=== PATIENT | male | born 1975 | race Two or more races ===

== ENCOUNTER 2016-08-18 08:55 | Emergency (ER) | payer SELFPAY ==
[2016-08-18] MEDS ORDERED: IOPAMIDOL 300 (61%) 100 ML VIAL IV ONE (08:56)
[2016-08-18] MEDS ORDERED: SODIUM CHLORIDE 0.9% 1,000 ML ONE (09:21)
[2016-08-18 09:38] LABS: BASO % 0.1 % (0.2-1.0); EOS # 0.1 (0.0-0.5); EOS % 1.3 % (0.9-2.9); HEMATOCRIT 42.4 % (32.0-52.0); HEMOGLOBIN 14.3 gm/l (14.0-18.0); IMM NEUT% 0.2 % (0-1); LYMPH # 1.6 (1.0-4.8); LYMPH % 19.6 % (15-45); MEAN CELL VOLUME 86.2 fl (80.0-94.0); MEAN CORPUSCULAR HEMOGLOBIN 29.1 pg (27.0-31.0); MEAN CORPUSCULAR HGB CONC 33.7 g/dl (33.0-37.0); MEAN PLATELET VOLUME 10.8 fl (7.4-10.4); MONO # 0.5 (0.0-0.8); NEUT % 72.8 % (43-75); PLATELET COUNT 182 K/mm3 (130-400); RED CELL DISTRIBUTION WIDTH 12.1 % (11.5-14.5)
[2016-08-18 10:34] LABS: ALB/GLOB RATIO 1.4 (>1.0); ALBUMIN 4.6 gm/dL (3.5-5.7); CALCIUM 9.2 mg/dL (8.6-10.3); MAGNESIUM 2.3 mg/dL (1.9-2.7)
[2016-08-18 10:40] LABS: C-REACTIVE PROTEIN 6.2 mg/dl (<1.0)
[2016-08-18 10:56] LABS: URINE APPEARANCE CLEAR; URINE BILIRUBIN NEGATIVE (NEGATIVE); URINE BLOOD NEGATIVE (NEGATIVE); URINE COLOR YELLOW; URINE GLUCOSE (UA) NEGATIVE (NEGATIVE); URINE LEUKOCYTE ESTERASE NEGATIVE (NEGATIVE); URINE NITRITE NEGATIVE (NEGATIVE); URINE PROTEIN NEGATIVE (NEGATIVE); URINE UROBILINOGEN NORMAL (0-1 mg/dl)
[2016-08-18] MEDS ORDERED: HYDROMORPHONE HCL 1 MG/ML SYRINGE ONE (11:45)
--- NOTE | 2016-08-18 12:11 | CT ---
Exam Type: ABD/PELVIS W/ CON Date and Time: 08/18/2016 11:06 AM Clinical information: Left lower quadrant pain Comparison: None Technique: Contiguous axial 4 mm images were obtained from the lung bases through the pelvis after the uneventful IV administration of 100 cc of Isovue 300. Sagittal and coronal reformations with high resolution lung algorithm images were also obtained at this time. CT DI: 7.8 DLP 393.4 FINDINGS: Lung base : Dependent and atelectatic changes note the lung bases. Visualized heart:There is no pericardial effusion. LIVER: Minimal diffuse fatty infiltration to the liver. A too small to characterize focal hypodensity is identified within the anterior segment right lobe of the liver on image 24. The remainder the liver is normal. BILE DUCTS: normal caliber. GALLBLADDER: No calcified gallstones. Normal caliber wall. PANCREAS: within normal limits. SPLEEN: within normal limits. ADRENALS: within normal limits. KIDNEYS: within normal limits. Stomach and small BOWEL: Normal caliber. Large bowel: Air and stool are noted within the large bowel. LYMPH NODES: No enlarged mesenteric lymph nodes. PERITONEUM: no ascites or free air, no fluid collection. VESSELS: within normal limits RETROPERITONEUM: within normal limits. ABDOMINAL WALL: Tiny fat-containing umbilical hernia. Bladder: Normal BONES: within normal limits. IMPRESSION: No acute inflammatory process is identified within the abdomen or pelvis. Close clinical and radiographic follow-up are recommended. Incidental findings as above. Findings were called to Dr. Perez at approximately 1207 hours on 08/18/2016.
== END 2016-08-18 12:43 | disposition home or self-care (01) ==
LOC: ED 08:55
DX: M79.1 Myalgia (principal); M54.2 Cervicalgia; M25.562 Pain in left knee; M79.602 Pain in left arm; R10.9 Unspecified abdominal pain
CPT/HCPCS: 83690; 86141; 85025; 80053; 83735; 85651; 81003; 84484; 84550; 74177; 99284 ×2; 96374; 96361; J1170; J7030; Q9967